=== PATIENT | female | born 1980 | race American Indian/Alaskan Native ===

== ENCOUNTER 2016-09-26 20:02 | Emergency (ER) | payer OTHER ==
[~2016-09-26] VITALS: Ht 172.7 cm; Wt 94.3 kg
[2016-09-26 20:05] VITALS: BP 143/81
--- NOTE | 2016-09-26 20:35 | PHYS DOC ---
Past Medical History Past Medical History: Anxiety, Depression Past Surgical History: Cholecystectomy, Additional Past Surgical Histo: knee Alcohol Use: None Drug Use: None Adult General Chief Complaint Chief Complaint: HAND PROBLEM [facility] HPI Patient is a 36 year old female presents emergency room the complaint of right hand pain and swelling for approximately 2 weeks. Patient describes a series of 3 different injuries which to them for initial middle finger injuries that she describes dislocations that she reduced herself. 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 Patient states that she's had no previous images of the finger. She denies any periods fractures or dislocations. She has no history of bone forming disorders. Review of Systems Review of Systems Constitutional: Denies fever or chills [] Eyes: Denies change in visual acuity, redness, or eye pain [] HENT: Denies nasal congestion or sore throat [] Respiratory: Denies cough or shortness of breath [] Cardiovascular: No additional information not addressed in HPI [] GI: Denies abdominal pain, nausea, vomiting, bloody stools or diarrhea [] : Denies dysuria or hematuria [] Musculoskeletal: Denies back pain or joint pain [] Integument: Denies rash or skin lesions [] Neurologic: Denies headache, focal weakness or sensory changes [] Endocrine: Denies polyuria or polydipsia [] Allergies Allergies Allergies Coded Allergies Type Severity Reaction Last Updated Verified No Known Drug Allergies 09/26/16 No Physical Exam Physical Exam Constitutional: Well developed, well nourished, no acute distress, non-toxic appearance. [] HENT: Normocephalic, atraumatic, bilateral external ears normal, oropharynx moist, no oral exudates, nose normal. [] Eyes: PERRLA, EOMI, conjunctiva normal, no discharge. [] Neck: Normal range of motion, no tenderness, supple, no stridor. [] Cardiovascular:Heart rate regular rhythm, no murmur [] Lungs & Thorax: Bilateral breath sounds clear to auscultation [] Abdomen: Bowel sounds normal, soft, no tenderness, no masses, no pulsatile masses. [] Skin: Warm, dry, no erythema, no rash. [] Back: No tenderness, no CVA tenderness. [] Extremities: Right hand with obvious swelling to the base of the proximal phalanx of the middle finger as well as the third MCP J. There is mild swelling to the fourth MCP J. Focal area of tenderness is at the base of the proximal phalanx and the MCP J itself. There is no palpable defect, deformity, instability or crepitus. Patient is able to flex and extend at both the PIPJ's and DIPJ's of both fingers. Fingers are neurovascularly intact. Neurologic: Alert and oriented X 3, normal motor function, normal sensory function, no focal deficits noted. [] Psychologic: Affect normal, judgement normal, mood normal. [] Current Patient Data Vital Signs Vital Signs Date Time Temp Pulse Resp B/P (MAP) Pulse Ox O2 Delivery O2 Flow Rate FiO2 09/26/16 20:05 98.8 90 16 143/81 (101) 98 Room Air 98.8 EKG EKG [] Radiology/Procedures Radiology/Procedures 3 views of patient's right hand were performed with adequate technique. There is no evidence of acute fracture dislocation. There is soft tissue swelling that correlates with physical exam. Course & Med Decision Making Course & Med Decision Making Pertinent Labs and Imaging studies reviewed. (See chart for details) [] Dragon Disclaimer Dragon Disclaimer This electronic medical record was generated, in whole or in part, using a voice recognition dictation system. Departure Departure Impression: Primary Impression: Musculoskeletal pain of extremity Disposition: 01 HOME, SELF-CARE Condition: GOOD Referrals: ALONDRA TANG MD (PCP) Patient Instructions: Musculoskeletal Pain Additional Instructions: 1. The x-rays here today show no evidence of bony abnormality. 2. Wear the splint on your finger and continue to bailee tape your middle finger and ring finger for the next week. 3. Take the medication as prescribed. 4. You can either follow-up with your primary care doctor or orthopedic doctor within the next 7-10 days. Scripts Hydrocodone/Apap 5-325 (NORCO 5-325 TABLET) 1 Each Tablet 1 TAB PO PRN Q6HRS Y for PAIN for 15 Days, TAB 0 Refills Prov: LALO REGALADO 09/26/16 LALO REGALADO September 26, 2016 20:35
[2016-09-26] MEDS ORDERED: HYDR-971 PO (21:06)
--- NOTE | 2016-09-27 08:34 | RAD ---
Indication several injuries over the past 2 weeks. Pain and swelling. AP oblique and lateral views of the right hand were obtained. No acute or significant bony finding is seen
== END 2016-09-26 21:16 | disposition home or self-care (01) ==
LOC: ER 20:02
DX: M79.1 Myalgia (principal); M79.641 Pain in right hand; M79.89 Other specified soft tissue disorders
CPT/HCPCS: 29130; 73130; 99284-25

== ENCOUNTER → 2016-11-09 | Outpatient (CLI) | payer OTHER ==
[~2016-11-09] MED LIST: HYDR-971 PO
--- NOTE | 2016-11-09 16:32 | KCIC ---
MR of the right knee HISTORY: Patellar dislocation. No known injury. Surgery 8 or 10 years ago. Pain around the patella in recent months. COMPARISON: None available. FINDINGS: No evidence of medial meniscal tear. No evidence of lateral meniscal tear. Anterior and posterior cruciate ligaments are intact. Medial collateral ligament intact Iliotibial band unremarkable Fibular collateral ligament, biceps femoris tendon and popliteus tendon are intact. Patellar tendon and quadriceps tendon intact Large defect at the lateral retinaculum presumably due to a prior surgical release or old traumatic rupture. Moderate joint effusion. No evidence of osteochondral loose body. Chondromalacia of the patella with mild surface thinning and full length fissuring of the lateral facet and to a lesser extent median ridge. Full-thickness cartilage loss at the upper femoral trochlea. No bone lesion. No acute fracture. No significant Itnsley's cyst. IMPRESSION: 1. Patellofemoral joint chondromalacia. 2. No evidence of meniscal tear or other internal derangement. 3. Joint effusion. 4. Lateral retinacular defect, presumably due to surgical release, versus old rupture. Electronically signed by: Remberto Recinos MD (11/09/2016 4:28 PM)
== END | disposition home or self-care (01) ==
LOC: KCIC MRI 15:08
PROVIDERS: ATTEND Orthopaedic Surgery Sports Medicine
DX: S83.004D Unspecified dislocation of right patella, subsequent encounter (principal); X58.XXXD Exposure to other specified factors, subsequent encounter
CPT/HCPCS: 73721

== ENCOUNTER 2016-11-30 07:58 | Day surgery (SDC) | payer OTHER ==
[~2016-11-30] VITALS: Ht 172.7 cm; Wt 86.6 kg
[~2016-11-30 07:58] MED LIST changes: +BUPIVACAINE MPF 0.5% 30 ML VIAL. ONE; +EPINEPHrine VIAL 30 MG/30 ML VIAL ONE; +HYDROmorphone 2 MG/ML VIAL IV PRN; +IV RINGERS,LACTATED 1000ML 1,000 ML IV SCH; +LIDOCAINE 1% 1 ML SYRINGE. ID PRN; +LIDOCAINE 1% PF 30 ML VIAL. ONE; +MORPHINE SULFATE 2 MG/ML DISP.SYRIN. IV PRN; +ONDANSETRON PF 4 MG/2 ML VIAL. IV PRN; +PROCHLORPERAZINE 10 MG/2 ML VIAL. IV PRN; +fentaNYL PF VIAL 100 MCG/2 ML VIAL IV PRN
--- NOTE | 2016-11-30 08:59 | DISCH ---
DISCHARGE INSTRUCTIONS Condition on Discharge Condition on Discharge: Stable Activity After Discharge Activity Instructions for Disc: Other, see below Other activity instructions: crutches as needed Bathing Instructions: Shower-keep dressing dry Weight Bearing Status after Di: Non weight bearing Diet after Discharge Diet after Discharge: Regular Wound Incision Care Wound/Incision Care: Ice to area for comfort, Keep wound/cast CDI, Keep wound elevated, Change dressing Contacting the DR. after DC Call your doctor for: Concerns you may have Follow-Up Follow up with: Susu in 2wks SANDEEP CHAMBERS II, MD Nov 30, 2016 08:59
--- NOTE | 2016-11-30 09:04 | PDOC4 ---
Operative Note Operative Note Date of surgery: 11/30/2016 Surgeon: Tl Chambers MD Field Service Analyst: Lizzy Forbes Preoperative diagnosis: Right knee patellar cartilage injury Postoperative diagnosis: Same Procedure performed: Right knee arthroscopy, microfracture patella; revision, repair, lateral release Findings: Patient had near full-thickness cartilage loss in her trochlea. She had grade 2-3 changes within area centrally of full-thickness cartilage loss at the undersurface at the midportion of her patella. Blood loss: 5 mL Complications: None Tourniquet time: 30 minutes Reason for procedure: Tl modi pleasant 36-year-old who has been greatly limited in her ability to continue her weight loss regimen and level of activity secondary to mechanical symptoms at her knee. These happen it is fairly reproducible range of motion when she is doing more strenuous activity. There has been a lot of catching and popping that is new as well as feelings like her kneecap is popping out. For details please see my outpatient notes Her and I had a discussion proceeding to the operating room for the above procedure and she elected to proceed. Description of procedure: Patient was greeted in the preoperative area by myself for the correct extremity was marked and verified. She was taken back to the operative suite and her aunt proximal were started and row. Once in the OR she was transferred gently supine to the OR table and had successful induction with general anesthesia. We then placed a nonsterile tourniquet and taped in place to her right upper thigh. We then placed a padded crest at the bed for her foot and a padded bolster for her lateral hip to maintain her leg at 90 of flexion in her knee. I conducted a examination under anesthesia at this point. We then proceeded to prep and drape right lower extremity in our usual sterile fashion and conducted our standard preoperative timeout. I then palpated and marked her surface anatomy and then we exsanguinated the extremity with an Esmarch and insufflated tourniquet to 250 mmHg. After this I made my standard anterolateral arthroscopic portal incision and inserted the blunt arthroscopic trocar into the suprapatellar pouch. I then conducted my diagnostic arthroscopy with the above-noted findings. At this point I begin debriding the central portion of her patellar cartilage injury with a curette and shaver. Due to some difficulty accessing this lesion fully, used a spinal needle to localize a superolateral portal and incised skin in accordance with this and then worked through the superolateral portal was well. After this I inserted a microfracture awl and then assistant professor of spanish On the awl while I held it. I then used my shaver for aspiration to visualize extravasation of the blood to the holes. I then removed all excess arthroscopic fluid and the arthroscopic instrumentation and palpated for the major defect at her lateral retinaculum and then incised skin over this. I then dissected down and identified the split in her lateral retinaculum. After this I used simple interrupted 0 Vicryl after freshening the area up to repair it. After this, I irrigated this area out and close the deeper subcutaneous tissue with inverted interrupted 0 Vicryl followed by inverted interrupted 2-0 Vicryl for subcutaneous tissue and 4-0 Monocryl in a running subcuticular fashion for skin. Prior to comp she wound closure all culture reported as correct 2. The portals were closed with simple interrupted 2-0 nylon. The leg was cleansed and dried, tourniquet was let down, and sterile dressing and Geoffrey wrap are applied. A hinged knee brace was then applied. She tolerated surgery well. No complications. At the conclusion of the surgery she was awakened from anesthesia and transferred gently supine to the recovery room cart after the brace was applied. Postop plan is to discharge her home. She will be nonweightbearing. I did instruct her on active range of motion exercises. We will see her back in my clinic in 2 weeks, sooner should a problem arise TL CHAMBERS II, MD Nov 30, 2016 09:04
[2016-11-30] MEDS ORDERED: DEXAMETHASONE SOD PHOS 20 MG/5 ML VIAL. ONE (09:08)
[2016-11-30] MEDS ORDERED: PROPOFOL 20 ML IV ONE (09:08)
[2016-11-30] MEDS ORDERED: LIDOCAINE 2% PF Vial for OR 5 ML VIAL. ONE (09:08)
[2016-11-30] MEDS ORDERED: ONDANSETRON PF 4 MG/2 ML VIAL. ONE (09:09)
[2016-11-30] MEDS ORDERED: MIDAZOLAM HCL/PF 2 MG/2 ML VIAL. ONE (09:09)
[2016-11-30] MEDS ORDERED: fentaNYL PF VIAL 100 MCG/2 ML VIAL ONE (09:09)
[2016-11-30] MEDS ORDERED: FAMOTIDINE 20 MG/2 ML VIAL ONE (09:09)
[2016-11-30 09:21] LABS: NEG OBC UR NEG; POS OBC UR POS
[2016-11-30] MEDS ORDERED: ePHEDrine PF IN SALINE 50 MG/5 ML DISP.SYRIN IV ONE (09:31)
[2016-11-30] MEDS ORDERED: SEVOFLURANE 31 TO 60 MINUTES. IH ONE (10:18)
[2016-11-30] MEDS: fentaNYL PF VIAL 100 MCG/2 ML VIAL IV PRN ×3 (10:55→11:19)
[2016-11-30] MEDS ORDERED: oxyCODONE/APAP 5/325 1 TAB TABLET PO ONE (11:00)
[2016-11-30] MEDS ORDERED: DOCU-109 PO (11:28)
[2016-11-30] MEDS ORDERED: ONDA4TAB10 SL (11:29)
[2016-11-30 12:15] VITALS: BP 132/74
== END 2016-11-30 13:01 | disposition home or self-care (01) ==
LOC: SURG 07:58
PROVIDERS: ATTEND Orthopaedic Surgery Sports Medicine
DX: S89.81XA Other specified injuries of right lower leg, initial encounter (principal); X58.XXXA Exposure to other specified factors, initial encounter; Y93.9 Activity, unspecified; Y92.89 Other specified places as the place of occurrence of the external cause; Y99.9 Unspecified external cause status; E66.9 Obesity, unspecified; Z68.34 Body mass index [BMI] 34.0-34.9, adult; F32.9 Major depressive disorder, single episode, unspecified; D64.9 Anemia, unspecified; Z87.39 Personal history of other diseases of the musculoskeletal system and connective tissue; Z72.89 Other problems related to lifestyle; Z90.49 Acquired absence of other specified parts of digestive tract
CPT/HCPCS: 29873; 29879; 81025; 97161; C1782; G8978; G8979; J0171; J0690; J1100; J2250; J2270; J2405; J2704; J3010; J3490; S0028

== ENCOUNTER → 2017-03-05 | Outpatient (CLI) | payer OTHER ==
[~2017-03-05] MED LIST changes: -BUPIVACAINE MPF 0.5% 30 ML VIAL. ONE; +CITA40TA5 PO; +CLON1TAB PO; +DOCU-109 PO; -EPINEPHrine VIAL 30 MG/30 ML VIAL ONE; +FERR-26 PO; -HYDROmorphone 2 MG/ML VIAL IV PRN; -IV RINGERS,LACTATED 1000ML 1,000 ML IV SCH; -LIDOCAINE 1% 1 ML SYRINGE. ID PRN; -LIDOCAINE 1% PF 30 ML VIAL. ONE; -MORPHINE SULFATE 2 MG/ML DISP.SYRIN. IV PRN; +ONDA4TAB10 SL; -ONDANSETRON PF 4 MG/2 ML VIAL. IV PRN; +OXYC-323 PO; -PROCHLORPERAZINE 10 MG/2 ML VIAL. IV PRN; -fentaNYL PF VIAL 100 MCG/2 ML VIAL IV PRN
--- NOTE | 2017-03-05 12:32 | RAD ---
MRI left knee without contrast dated 03/05/2017 11:15 AM Indication: Chronic left knee pain . Pain. Comparison: No comparison is available. Technique: Routine multiplanar multisequence imaging performed. . Findings: Bone marrow signal is homogeneous. No marrow edema. Mild tricompartmental hypertrophic changes. Thinning and surface irregularity of the articular cartilage throughout. There is full-thickness cartilage loss with subchondral edema at the lateral patellar facet with moderate cartilage loss at the trochlear groove. No significant joint effusion. No significant popliteal cyst. No intra-articular loose body. Anterior cruciate and posterior cruciate ligaments are intact. Medial and lateral collateral complexes are intact. Iliotibial band, popliteus tendon and pes anserine complex within normal limits. Quadriceps and patellar tendon are intact. No abnormality of the medial or lateral retinaculum. Mild lateral patellar subluxation with tibial tubercle to trochlear groove distance estimated at approximately 8 mm. Both menisci are normal in morphology and signal. No articular surface tear or para meniscal cyst. IMPRESSION: 1. No evidence of internal derangement. 2. Anterior compartment chondromalacia with full-thickness cartilage loss at the lateral patellar facet. 3. Mild lateral patellar subluxation. Electronically signed by: Remberto Banks MD (03/05/2017 12:29 PM) [id number]
== END | disposition home or self-care (01) ==
LOC: MRI 10:50
PROVIDERS: ATTEND Orthopaedic Surgery Sports Medicine
DX: S83.012A Lateral subluxation of left patella, initial encounter (principal); M94.262 Chondromalacia, left knee; X58.XXXA Exposure to other specified factors, initial encounter; Y93.89 Activity, other specified; Y92.89 Other specified places as the place of occurrence of the external cause; Y99.8 Other external cause status
CPT/HCPCS: 73721

== ENCOUNTER 2017-04-07 06:01 | Day surgery (SDC) | payer OTHER ==
[~2017-04-07] VITALS: Ht 172.7 cm; Wt 85.3 kg
[~2017-04-07 06:01] MED LIST changes: -OXYC-323 PO
[2017-04-07] MEDS ORDERED: EPINEPHrine VIAL 30 MG/30 ML VIAL ONE (06:54)
[2017-04-07] MEDS ORDERED: LIDOCAINE 1% 20 ML VIAL. ONE (06:54)
[2017-04-07] MEDS ORDERED: BUPIVACAINE 0.5% 50 ML VIAL. ONE (06:54)
[2017-04-07] MEDS ORDERED: LIDOCAINE 1% PF 2 ML VIAL. ID PRN (07:00)
[2017-04-07] MEDS ORDERED: PROCHLORPERAZINE 10 MG/2 ML VIAL. IV PRN (07:00)
[2017-04-07] MEDS ORDERED: IV RINGERS,LACTATED 1000ML 1,000 ML IV SCH (07:00)
[2017-04-07] MEDS ORDERED: HYDROmorphone 2 MG/ML VIAL IV PRN (07:00)
[2017-04-07] MEDS ORDERED: fentaNYL PF VIAL 100 MCG/2 ML VIAL IV PRN (07:00)
[2017-04-07 07:04] LABS: NEG OBC UR NEG; POS OBC UR POS
[2017-04-07] MEDS ORDERED: fentaNYL PF VIAL 250 MCG/5 ML VIAL ONE (07:09)
[2017-04-07] MEDS ORDERED: MIDAZOLAM HCL/PF 2 MG/2 ML VIAL. ONE (07:09)
[2017-04-07] MEDS ORDERED: KETOROLAC 30 MG/ML INJ FOR OR. INJ ONE (07:57)
[2017-04-07] MEDS ORDERED: LIDOCAINE 2% PF Vial for OR 5 ML VIAL. ONE (07:57)
[2017-04-07] MEDS ORDERED: PROPOFOL 20 ML IV ONE (07:57)
[2017-04-07] MEDS ORDERED: DEXAMETHASONE SOD PHOS 20 MG/5 ML VIAL. ONE (07:58)
[2017-04-07] MEDS ORDERED: ONDANSETRON PF 4 MG/2 ML VIAL. ONE (07:58)
[2017-04-07] MEDS ORDERED: EPINEPHrine 1 MG/ML VIAL IRR ONE (08:00)
[2017-04-07] MEDS ORDERED: LIDOCAINE 1% 20 ML VIAL. IJ ONE (08:01)
[2017-04-07] MEDS ORDERED: BUPIVACAINE MPF 0.5% 30 ML VIAL. IJ ONE (08:05)
[2017-04-07] MEDS ORDERED: SEVOFLURANE 61 TO 120 MINUTES. IH ONE (08:27)
--- NOTE | 2017-04-07 08:38 | DISCH ---
DISCHARGE INSTRUCTIONS Condition on Discharge Condition on Discharge: Stable Activity After Discharge Activity Instructions for Disc: Other, see below Other activity instructions: ok to WBAT with brace locked in extension Bathing Instructions: Shower-keep dressing dry Weight Bearing Status after Di: As tolerated Diet after Discharge Diet after Discharge: Regular Wound Incision Care Wound/Incision Care: Ice to area for comfort, Keep wound/cast CDI, Keep wound elevated, Change dressing Contacting the DR. after DC Call your doctor for: Concerns you may have Follow-Up Follow up with: Susu in 2 wks SANDEEP CHAMBERS II, MD Apr 07, 2017 08:38
--- NOTE | 2017-04-07 08:44 | PDOC4 ---
Operative Note Operative Note Date of surgery: 04/07/2017 Surgeon: Tl Chambers Preoperative diagnosis: Left knee patellar cartilage injury Postoperative diagnosis: Same Procedure performed left knee arthroscopic patellar microfracture Anesthesia Gen. plus local at the end Findings: Full-thickness cartilage lesion with some adjacent grade 2-3 changes centrally at the patella. The lesion was 5 x 7 mm. Intact medial and lateral compartment cartilage Intact medial and lateral meniscus next normal ACL Blood loss: 10 mL Tourniquet time: 24 minutes Complications: None Reason for procedure: Joi is a very pleasant 37 female who presents to clinic with painful catching and inability to exercise and was having increasing difficulty walking and doing her ADLs secondary to her knee pain. I performed a left knee arthroscopic procedure and she had recovered well from this. Investigation, including clinical exam and MRI, of her left knee revealed the patellar cartilage lesion and we had a discussion of the risk benefits alternatives to the above surgery and she elected to proceed. Description of procedure: She was greeted in the preoperative area by myself for the correct extremity was marked and verified. She was taken back to the operative suite and antibiotics were started and row. Once in the OR she was transferred gently supine to the operating room table and secured to the bed with all pressure points padded. We had a padded bump laterally at her hip and a padded bar across a 4 to the bed to maintain her knee in 90. We taped a nonsterile tourniquet in place to her left thigh after successful induction of a general anesthetic occurred. I then conducted my examination under anesthesia , knee was stable to varus and valgus, negative Bere, negative dial. We then proceeded to prep and drape left lower extremity are usual sterile fashion and conducted our standard preoperative timeout. After this, I palpated and marked surface anatomy and made my standard anterolateral arthroscopic portal incision after exsanguinating the extremity with an Esmarch and insufflating tourniquet. I then introduced the blunt arthroscopic trocar into the suprapatellar pouch and and conducted my diagnostic arthroscopy and upon entering the medial compartment used a spinal to localize an anteromedial portal and incised skin in accordance with this. I then continued on with my diagnostic arthroscopy with the above-noted findings. After this I used an angled curet and shaver to debride the lesion down to bone, removing the calcified cartilage. I then used a an angled microfracture awl to try to punch holes in the bone but was not happy with my trajectory and therefore I used a spinal needle to localize a superolateral portal and incised skin in accordance with this. After this, I was able to achieve a more appropriate projectory with my angled microfracture awl and punched to holes in the bone and confirmed extravasation of marrow elements. After this, removed all excess arthroscopic fluid and the arthroscopic instrumentation. Her portals were closed with simple interrupted 2- 0 nylon. The leg was cleansed and dried and injected about 20 mL of local anesthetic into the periportal soft tissues. We then applied Xeroform, gauze, and EBD, cast padding, and an Geoffrey wrap. She tolerated surgery well. The conclusion of surgery she is awake from anesthesia and transferred gently supine to the recovery room cart. She was taken to the PACU in stable and expected condition. Postoperative plan is okay to weight-bear as tolerated in extension, with the brace locked. She will work on frequent range of motion exercises as we had discussed. TL CHAMBERS II, MD Apr 07, 2017 08:44
[2017-04-07] MEDS: fentaNYL PF VIAL 100 MCG/2 ML VIAL IV PRN ×2 (08:55→09:09)
[2017-04-07] MEDS ORDERED: OXYC-323 PO (09:11)
[2017-04-07] MEDS ORDERED: DOCU-109 PO (09:12)
[2017-04-07] MEDS ORDERED: ONDA4TAB10 SL (09:13)
[2017-04-07] MEDS: MORPHINE SULFATE 4 MG/ML DISP.SYRIN. IV PRN ×3 (09:26→09:45)
[2017-04-07] MEDS ORDERED: oxyCODONE/APAP 5/325 1 TAB TABLET PO PRN (09:30)
[2017-04-07 10:00] VITALS: BP 135/64
== END 2017-04-07 10:27 | disposition home or self-care (01) ==
LOC: SURG 06:01
PROVIDERS: ATTEND Orthopaedic Surgery Sports Medicine
DX: S83.32XA Tear of articular cartilage of left knee, current, initial encounter (principal); F32.9 Major depressive disorder, single episode, unspecified; D64.9 Anemia, unspecified; E66.9 Obesity, unspecified; Z98.51 Tubal ligation status; Z98.890 Other specified postprocedural states; M17.9 Osteoarthritis of knee, unspecified; Y93.89 Activity, other specified; X58.XXXA Exposure to other specified factors, initial encounter; Y92.89 Other specified places as the place of occurrence of the external cause; Y99.8 Other external cause status; Z90.49 Acquired absence of other specified parts of digestive tract
CPT/HCPCS: 29879; 81025; C1782; J0171; J0690; J0780; J1100; J1885; J2250; J2270; J2405; J2704; J3010; J3490; J7120; J2001

== ENCOUNTER 2017-08-02 07:11 | Emergency (ER) | payer OTHER ==
[2017-08-02] MEDS: IV NORMAL SALINE 1000ML BAG 1,000 ML IV (07:50)
[2017-08-02 07:56] LABS: ADD MAN DIFF? NO
[2017-08-02] MEDS: diphenhydrAMINE 50 MG/ML VIAL IVP (07:58)
[2017-08-02 07:59] LABS: BASO % 1 % (0-3); EOS # 0.2 x10^3/uL (0.0-0.7); EOS % 4 % (0-3); HEMOGLOBIN 12.8 g/dL (12.0-15.5); LYMPH # 1.9 x10^3/uL (1.0-4.8); LYMPH % 35 % (24-48); MEAN CORPUSCULAR HEMOGLOBIN 27 pg (25-35); MEAN CORPUSCULAR HGB CONC 33 g/dL (31-37); MEAN CORPUSCULAR VOLUME 83 fL (79-100); MONO # 0.3 x10^3/uL (0.0-1.1); MONO % 6 % (0-9); NEUT % 55 % (31-73); PLATELET COUNT 218 x10^3/uL (140-400); RED BLOOD COUNT 4.69 x10^6/uL (3.50-5.40); RED CELL DISTRIBUTION WIDTH 15.1 % (11.5-14.5); WHITE BLOOD COUNT 5.4 x10^3/uL (4.0-11.0)
[2017-08-02] MEDS: DEXAMETHASONE SOD PHOS 20 MG/5 ML VIAL. IV (08:00)
[2017-08-02] MEDS: PROCHLORPERAZINE 10 MG/2 ML VIAL. IV (08:03)
[2017-08-02 08:07] LABS: ANION GAP 7 (6-14); BLOOD UREA NITROGEN 19 mg/dL (7-20); CALCIUM 8.7 mg/dL (8.5-10.1); CARBON DIOXIDE 26 mmol/L (21-32); CHLORIDE 109 mmol/L (98-107); CREATININE 0.7 mg/dL (0.6-1.0); GFR 94.7; GLUCOSE 89 mg/dL (70-99); SODIUM 142 mmol/L (136-145)
[2017-08-02 08:09] LABS: POTASSIUM 4.7 mmol/L (3.5-5.1)
[2017-08-03 09:15] LABS: POC GLUCOSE 95 mg/dL (70-99)
== END 2017-08-02 10:08 | disposition home or self-care (01) ==
LOC: ER 07:11
DX: R51 Headache (principal); H53.8 Other visual disturbances; R11.0 Nausea; F41.9 Anxiety disorder, unspecified; F32.9 Major depressive disorder, single episode, unspecified; G47.00 Insomnia, unspecified; Z90.49 Acquired absence of other specified parts of digestive tract
CPT/HCPCS: 36415; 70450; 80048; 82962; 85025; 96361; 96374; 96375; 99285-25; J0780; J1100; J1200; J7030